=== PATIENT | female | born 1940 | race Caucasian/White ===

== ENCOUNTER → 2021-02-08 | Day surgery (SDC) | payer OTHER, SELFPAY ==
[~2021-02-08] MED LIST: AMLODIPINE BESY10 MG PO; ANASTROZOLE1 MG PO; ATORVASTATIN CA20 MG PO; ECOTRIN81 MG PO; FISH OIL 1,2001 EACH PO; HYDROCHLOROTHIA25 MG PO; OMEPRAZOLE20 M1 PO; SIMVASTATIN20 MG PO; TRIAMTERENE-HC1 EAC1 PO; ZYLOPRIM 100 M100 MG PO
== END | disposition home or self-care (01) ==
LOC: OR 06:48
PROVIDERS: Internal Medicine Gastroenterology
PROC: 0DB78ZX Excision of Stomach, Pylorus, Via Natural or Artificial Opening Endoscopic, Diagnostic (ICD-10-PCS; 2021-02-08)
PROC: 0DB68ZX Excision of Stomach, Via Natural or Artificial Opening Endoscopic, Diagnostic (ICD-10-PCS; 2021-02-08)
PROC: 0DB38ZX Excision of Lower Esophagus, Via Natural or Artificial Opening Endoscopic, Diagnostic (ICD-10-PCS; 2021-02-08)
PROC: 0DB48ZX Excision of Esophagogastric Junction, Via Natural or Artificial Opening Endoscopic, Diagnostic (ICD-10-PCS; principal; 2021-02-08 08:00)
DX: K22.70 Barrett's esophagus without dysplasia (principal); K21.00 Gastro-esophageal reflux disease with esophagitis, without bleeding; K31.819 Angiodysplasia of stomach and duodenum without bleeding; K29.50 Unspecified chronic gastritis without bleeding; K44.9 Diaphragmatic hernia without obstruction or gangrene; K22.2 Esophageal obstruction; K22.8 Other specified diseases of esophagus; I10 Essential (primary) hypertension; E78.00 Pure hypercholesterolemia, unspecified; Z88.2 Allergy status to sulfonamides; E66.3 Overweight; Z68.26 Body mass index [BMI] 26.0-26.9, adult; Z79.82 Long term (current) use of aspirin; Z79.899 Other long term (current) drug therapy; Z20.822 Contact with and (suspected) exposure to COVID-19
CPT/HCPCS: 88342; J2704; J7040